=== PATIENT | male | born 1965 | race Caucasian/White ===

== ENCOUNTER 2017-01-09 08:55 | Day surgery (SDC) | payer OTHER ==
[~2017-01-09] VITALS: Ht 185.4 cm; Wt 97.0 kg
[~2017-01-09 08:55] MED LIST: 0.9% Sodium Chloride 1,000 ML IV PRN; IMI100 PO; MULT1CAP33 PO; NORT10CA PO; OMEP20CA11 PO; PROC-4 PO; Sodium Chloride LOK Flush 10 mL Syringe IV PRN; fentaNYL-PF 50 mCg/mL 2 mL Inj IVPUSH PRN
[2017-01-09 09:21] VITALS: BP 122/64; PULSE 53; RESP 16; O2SAT 97
[2017-01-09] MEDS ORDERED: CANNIBIS (09:36)
[2017-01-09 10:42] VITALS: BP 118/66; PULSE 49; RESP 16; O2SAT 95
[2017-01-09 10:52] VITALS: BP 122/69; PULSE 56; RESP 16; O2SAT 96
--- NOTE | 2017-01-09 11:17 | ENDO ---
[address] [address] ENDOSCOPY PROCEDURE PATIENT: ANU GIRON : 1965 MR#: [id number] ADMIT: 01/09/2017 JOB ID: [id number] PROCEDURE: Esophagogastroduodenoscopy. INDICATION: Gastroesophageal reflux. INSTRUMENT USED: GIF-H180-J. ASA CLASSIFICATION: 1. MALLAMPATI SCORE: 2. MEDICATIONS: Versed 5 mg, fentanyl 125 mcg. PROCEDURE DETAILS: After informed consent was obtained, the patient was brought to the GI suite, where he was placed on oxygen via nasal cannula and monitored with continuous pulse oximeter, telemetry, and blood pressure monitoring. A time-out was performed. Then, he was placed in a left lateral decubitus position. Medications were administered for sedation. A bite block was placed. The standard EGD scope was inserted through the bite block and advanced under direct visualization to second portion of duodenum without difficulty. FINDINGS: 1. Normal-appearing duodenal bulb, first and second portion. Multiple random biopsies were obtained. 2. Normal-appearing pylorus and antrum. Multiple random biopsies were obtained throughout the antrum and body of the stomach. 3. Retroflexed views in the gastric body revealed a normal-appearing cardia and fundus. 4. There was a small hiatal hernia. The diaphragmatic hiatus was at approximately 43 cm, and the squamocolumnar junction was at 42 cm. At the squamocolumnar junction and extending proximally, there were two areas of ulceration that were clean based, consistent with ulcerative esophagitis. The remainder of the esophagus otherwise unremarkable. IMPRESSION: 1. Small hiatal hernia. 2. Ulcerative esophagitis. RECOMMENDATIONS: 1. PPI daily. 2. Reflux precautions. 3. Await biopsy results. 4. Proceed to colonoscopy. COMPLICATIONS: None. ESTIMATED BLOOD LOSS: Less than 5 mL.
--- NOTE | 2017-01-09 11:24 | ENDO ---
[address] [address] ENDOSCOPY PROCEDURE PATIENT: ANU GIRON : 1965 MR#: [id number] ADMIT: 01/09/2017 JOB ID: [id number] PROCEDURE PERFORMED: Colonoscopy. INDICATION: Colon cancer screening. Please see above for ASA classification, Mallampati score, and medications. INSTRUMENT USED: PCF-H180-AL. PREPARATION QUALITY: Fair. PROCEDURE DETAILS: After completion of the EGD exam, the patient was turned, then a digital rectal exam with palpation of the prostate was performed, which was unremarkable. The colonoscope was then inserted into the rectum and advanced under direct visualization to the cecum, which was identified by the presence of the ileocecal valve and appendiceal orifice. Once the cecum was reached, colonoscope was withdrawn back to the rectum as the mucosa and lumen were examined. In the rectum, retroflexion was performed. Following retroflexion, remaining air in the rectum was suctioned, and procedure was completed. FINDINGS: 1. In the transverse colon, there was an approximately 4 mm sessile polyp that was removed with a cold snare. 2. In the descending colon, there was a diminutive polyp removed with cold biopsy forceps. 3. In the distal descending colon was an approximately 8 mm pedunculated polyp that was removed with a hot snare. IMPRESSION: 1. Transverse colon polyp. 2. Descending colon polyp. RECOMMENDATIONS: 1. Avoid NSAIDs and anticoagulants for 72 hours. 2. Repeat colonoscopy pending polyp pathology results. COMPLICATIONS: None. ESTIMATED BLOOD LOSS: Less than 5 mL.
--- NOTE | 2017-01-10 16:41 | PATH ---
SURGICAL PATHOLOGY Attending Physician:Aleksandr Loza CASE STATUS: Signed Out PATIENT NAME: ANU GIRON PID: [id number] : 1965 DATE COLLECTED:01/09/2017 18:21 SPECIMEN: 1: Duodenum, Biopsy 2: Gastric, Biopsy 3: Colon, Biopsy 4: Colon, Biopsy CLINICAL HISTORY: 1). DUODENAL BIOPSY 2). GASTRIC BIOPSY 3). TRANSVERSE POLYP 40. DESCENDING POLYP FINAL DIAGNOSIS: 1. Duodenal Biopsy: Duodenal mucosa with no diagnostic abnormality. Negative for active inflammation, features of sprue, dysplasia, or malignancy. 2. Gastric Biopsy: Portions of gastric body-type mucosa with mucosal erosion and mild chronic gastritis. No definite Helicobacter organisms identified by H&E stain. Immunohistochemistry studies pending; results will be reported as an addendum. One small focus of intestinal metaplasia is present. Negative for dysplasia and malignancy. 3. Transverse Colon, Polyp, Biopsy: Portions of tubular adenoma; negative for high-grade dysplasia. 4. Descending Colon, Polyp, Biopsy: Portions of tubular adenoma x3; negative for high-grade dysplasia. ICD10: K63.5 GROSS DESCRIPTION: The specimen is received in four formalin filled containers labeled with the patient's name. 1). The specimen is sublabeled "duodenal" and consists of 2 portions of tissue which aggregate to 0.3 x 0.3 x 0.2 CM. The specimen is entirely submitted in cassette 1A. 2). The specimen is sublabeled "gastric" and consists of 2 portions of tissue which aggregate to 0.3 x 0.3 x 0.2 CM. The specimen is entirely submitted in cassette 2A. 3). The specimen is sublabeled "transverse polyp" and consists of a 0.4 x 0.2 x 0.2 CM portion of tissue which is entirely submitted in cassette 3A. 4). The specimen is sublabeled "descending polyps" and consists of 3 portions of tissue which aggregate to 0.7 x 0.6 x 0.5 CM. The 2 smallest portions are entirely submitted in cassette 4A. The largest piece is bisected and entirely submitted in the same cassette. 01/09/2017 [facility] ICD-9 CODES: CPT CODES: 1: 11820 2: 41503, 46286, 47530 3: 78317 4: 31657 PROCEDURE/ADDENDA: Immunohistochemistry SPI Interpretation {Not Entered} Results-Comments 2.GASTRIC BIOPSY: This addendum is to report the results of immunohistochemical stains for Helicobacter pylori. The gastric biopsy (part 2) is stained by immunohistochemical technique with monoclonal antibody to Helicobacter pylori (SP48). Positive and negative controls stain appropriately. Result: The patient tissue shows no staining. Interpretation: The gastric mucosa is negative for Helicobacter organisms by immunohistochemical stains. This test was developed and its performance characteristics determined by [facility]. It has not been cleared or approved by the [place]. Food and Drug Administration. The FDA has determined that such clearance or approval is not necessary. This test is used for clinical purposes. It should not be regarded as investigational or for research. Electronically Signed Out Lisha Patel MD Electronically Signed Out Shawna Todd MD [facility] [address], [place] [address] Technical component performed at [facility], [address], [address]
== END 2017-01-09 23:59 | disposition home or self-care (01) ==
LOC: END 08:55
PROVIDERS: ATTEND Internal Medicine Gastroenterology
DX: Z12.11 Encounter for screening for malignant neoplasm of colon (principal); D12.3 Benign neoplasm of transverse colon; D12.4 Benign neoplasm of descending colon; K22.10 Ulcer of esophagus without bleeding; K29.50 Unspecified chronic gastritis without bleeding; K44.9 Diaphragmatic hernia without obstruction or gangrene; K21.9 Gastro-esophageal reflux disease without esophagitis; R10.31 Right lower quadrant pain; F31.9 Bipolar disorder, unspecified; M79.7 Fibromyalgia; M47.892 Other spondylosis, cervical region; M54.5 Low back pain; F12.90 Cannabis use, unspecified, uncomplicated; Z86.14 Personal history of Methicillin resistant Staphylococcus aureus infection; Z85.3 Personal history of malignant neoplasm of breast
CPT/HCPCS: 43239; 45380; 45385; 88305; 88341; 88342; 99153; G0500; J2250; J3010; J7030